=== PATIENT | female | born 1990 | race Caucasian/White ===

== ENCOUNTER 2018-10-19 11:13 | Emergency (ER) | payer SELFPAY ==
--- NOTE | 2018-10-19 14:18 | Emergency Department Report ---
ED General Adult HPI - General Chief complaint: Chest Pain Stated complaint: BREAST PAIN Time Seen by Provider: 10/19/18 14:04 Source: patient, rn homecare Mode of arrival: Ambulatory Limitations: Language Barrier - History of Present Illness Initial comments: Patient is 27 years old female with no significant past medical history. Patient presented to the ER complaining of bilateral breast pain for the last week. Patient denied any discharge or mass in. She also complaining of bilateral hand pain and numbness for 1 month. Patient denied any fever, chills, nausea or vomiting. No abdominal pain. Patient stated that last time she had a period of more than 50 days ago. Patient denied any vaginal bleeding or vaginal discharge. - Related Data Allergies Allergy/AdvReac Type Severity Reaction Status Date / Time No Known Allergies Allergy Unverified 10/19/18 11:42 ED Review of Systems ROS: Stated complaint: BREAST PAIN Other details as noted in HPI Comment: All other systems reviewed and negative Constitutional: denies: chills, fever Respiratory: denies: cough, orthopnea, shortness of breath, SOB with exertion, SOB at rest, wheezing Cardiovascular: denies: chest pain, palpitations Gastrointestinal: denies: abdominal pain, nausea, vomiting, diarrhea, constipation, hematemesis, melena, hematochezia Musculoskeletal: denies: back pain Neurological: denies: headache, weakness, numbness, paresthesias, confusion, abnormal gait ED Past Medical Hx - Past Medical History Previous Medical History?: No - Surgical History Past Surgical History?: No - Social History Smoking Status: Never Smoker Substance Use Type: None ED Physical Exam - General Limitations: Language Barrier General appearance: alert, in no apparent distress - Head Head exam: Present: atraumatic, normocephalic, normal inspection - Eye Eye exam: Present: normal appearance, PERRL - ENT ENT exam: Present: normal exam, normal orophraynx, mucous membranes moist - Neck Neck exam: Present: normal inspection, full ROM. Absent: tenderness, meningismus, lymphadenopathy, thyromegaly - Respiratory Respiratory exam: Present: normal lung sounds bilaterally - Cardiovascular Cardiovascular Exam: Present: regular rate, normal rhythm, normal heart sounds - GI/Abdominal GI/Abdominal exam: Present: soft, normal bowel sounds. Absent: distended, tenderness, guarding, rebound, rigid, organomegaly, mass, bruit, pulsatile mass, hernia - Extremities Exam Extremities exam: Present: normal inspection, full ROM, normal capillary refill - Back Exam Back exam: Present: normal inspection, full ROM. Absent: CVA tenderness (R), CVA tenderness (L) - Neurological Exam Neurological exam: Present: alert, oriented X3, CN II-XII intact, normal gait, reflexes normal - Psychiatric Psychiatric exam: Present: normal mood - Skin Skin exam: Present: warm, intact, normal color ED Course Vital Signs 10/19/18 11:39 Temperature 98.6 F Pulse Rate 69 Respiratory 16 Rate Blood Pressure 120/76 O2 Sat by Pulse 100 Oximetry ED Medical Decision Making - Lab Data Result diagrams: 10/19/18 16:08 10/19/18 16:08 - Medical Decision Making Patient is 27 years old female with no significant past medical history. Patient presented to the ER complaining of bilateral breast pain for the last week. Patient denied any discharge or mass in. She also complaining of bilateral hand pain and numbness for 1 month. Patient denied any fever, chills, nausea or vomiting. No abdominal pain. Patient stated that last time she had a period of more than 50 days ago. Patient denied any vaginal bleeding or vaginal discharge. Patient labs and reviewed and is unremarkable. Negative test. Patient's symptoms are nonspecific. There is no acute emergency at this time but patient definitely needs to follow-up with her primary care physician for further investigation. Patient informed and patient was given [facility] for follow-up. Critical care attestation.: If time is entered above; I have spent that time in minutes in the direct care of this critically ill patient, excluding procedure time. ED Disposition Clinical Impression: Breast pain Disposition: - TO HOME OR SELFCARE Is pt being admited?: No Condition: Stable Instructions: Chest Pain (ED) Referrals: [facility] [Primary Care Provider] - 3-5 Days [facility] [Provider Group] - 3-5 Days
[2018-10-19 14:54] LABS: HCG Qualitative,Urine Negative (Negative)
[2018-10-19 15:07] LABS: Bacteria,Urine 1+ /HPF (Negative); Bilirubin,Urine NEG (Negative); Blood,Urine MOD (Negative); Color,Urine Yellow (Yellow); Protein,Urine <15 mg/dL mg/dL (Negative); Urobilinogen,Urine < 2.0 mg/dL (<2.0)
[2018-10-19 15:30] VITALS: BP 120/76
[2018-10-19 16:18] LABS: Basophils % (Auto) 0.4 % (0.0-1.8); Eosinophils # (Auto) 0.4 K/mm3 (0.0-0.4); Eosinophils % (Auto) 5.4 % (0.0-4.3); Hemoglobin 12.9 gm/dl (10.1-14.3); Lymphocytes # (Auto) 2.1 K/mm3 (1.2-5.4); Lymphocytes % (Auto) 31.3 % (13.4-35.0); Mean Corpuscular HGB Conc 32 % (30-34); Mean Corpuscular Volume 81 fl (79-97); Monocytes # (Auto) 0.5 K/mm3 (0.0-0.8); Monocytes % (Auto) 6.9 % (0.0-7.3); Platelet Count 302 K/mm3 (140-440); Red Blood Count 4.94 M/mm3 (3.65-5.03); Red Cell Distribution Width 14.5 % (13.2-15.2)
[2018-10-19 16:42] LABS: Alanine Aminotransferase 49 units/L (7-56); Albumin 4.5 g/dL (3.9-5)
[2018-10-19 16:56] LABS: BUN/Creatinine Ratio 25; Blood Urea Nitrogen 10 mg/dL (7-17); Calcium 8.8 mg/dL (8.4-10.2); Hemolysis Index 3
== END 2018-10-19 17:12 | disposition home or self-care (01) ==
LOC: ED 11:13
DX: N64.4 Mastodynia (principal); M79.642 Pain in left hand; M79.641 Pain in right hand
CPT/HCPCS: 36415; 80053; 81001; 81025; 85025; 99283